=== PATIENT | female | born 1990 | race Caucasian/White ===

== ENCOUNTER 2018-08-29 23:27 | Emergency (ER) | payer MEDICAID ==
[~2018-08-29] VITALS: Ht 177.8 cm; Wt 47.7 kg
[2018-08-30] MEDS ORDERED: methylPREDNISolone SOD SUCC 125 MG/2 ML ONE (00:12)
[2018-08-30] MEDS ORDERED: ALBUTEROL SULFATE 2.5 MG/3 ML ONE (00:14)
[2018-08-30] MEDS ORDERED: SODIUM CHLORIDE FLUSH 10ML SYR IVF ONE (00:30)
[2018-08-30] MEDS ORDERED: SODIUM CHLORIDE 0.9% 1,000ML IVBOLUS ONE (00:30)
[2018-08-30] MEDS ORDERED: ALBUTEROL/IPRATROPIUM 2.5MG/0.5MG, 3 ML NPPB ONE (00:30)
[2018-08-30] MEDS ORDERED: methylPREDNISolone SOD SUCC 125 MG/2 ML IVP ONE (00:30)
[2018-08-30] MEDS ORDERED: ALBUTEROL SULFATE 2.5 MG/3 ML NPPB ONE ×2 (00:30→01:30)
[2018-08-30 00:34] LABS: BASOPHILS # (AUTO) 0.04 x10^3/uL (0-0.1); BASOPHILS % (AUTO) 0 % (0-1); EOSINOPHILS # (AUTO) 0.12 x10^3/uL (0-0.4); EOSINOPHILS % (AUTO) 1 % (1-7); LYMPHOCYTES # (AUTO) 1.53 x10^3/uL (1-3.4); LYMPHOCYTES % (AUTO) 13 % (22-44); MD NO; MEAN CORPUSCULAR HEMOGLOBIN 30.6 pg (27.0-34.8); MEAN CORPUSCULAR HGB CONC 33.5 g/dL (32.4-35.8); MEAN CORPUSCULAR VOLUME 91.3 fL (80-100); MONOCYTES % (AUTO) 7 % (2-9); NEUTROPHILS # (AUTO) 9.61 x10^3/uL (1.8-6.8); NEUTROPHILS % (AUTO) 79 % (42-75); PLATELET COUNT 263 x10^3/uL (130-400); RED BLOOD COUNT 5.37 x10^6/uL (3.82-5.3); RED CELL DISTRIBUTION WIDTH 12.3 % (9.6-15.2)
[2018-08-30 00:42] LABS: ALBUMIN 4.5 g/dL (3.4-5.0); ANION GAP 12 mmol/L (5-15); CALCIUM 9.2 mg/dL (8.5-10.1); CHLORIDE 105 mmol/L (98-107)
[2018-08-30 00:43] LABS: CREATININE 0.74 mg/dL (0.55-1.02)
[2018-08-30 02:47] VITALS: BP 109/71
[2018-08-30] MEDS ORDERED: ACETAMINOPHEN 500 MG TABLET PO ONE (03:00)
== END 2018-08-30 02:55 | disposition home or self-care (01) ==
LOC: ED 08-30 00:04
DX: J20.8 Acute bronchitis due to other specified organisms (principal)
CPT/HCPCS: 36415; 71045; 80048; 82040; 85025; 93005; 94640; 96374; 99285; J2930; J7030; J7613

== ENCOUNTER 2018-11-15 18:12 | Emergency (ER) | payer MEDICAID ==
[~2018-11-15] VITALS: Ht 177.8 cm; Wt 54.5 kg
[2018-11-15 18:22] VITALS: BP 118/65
--- NOTE | 2018-11-15 19:04 | NUR ---
ASSUMED CARE OF PT REPORT FROM SUSANNA
[2018-11-15] MEDS ORDERED: OXYcodone/APAP 5/325MG TABLET ONE (19:12)
[2018-11-15] MEDS ORDERED: LIDOCAINE-MPF 1%, 5ML ONE (19:12)
[2018-11-15] MEDS ORDERED: IBUPROFEN 600 MG TABLET ONE (19:12)
[2018-11-15] MEDS ORDERED: ONDANSETRON ODT 4 MG ONE (19:12)
[2018-11-15] MEDS ORDERED: CLINDAMYCIN 150 MG/ML, 6ML ONE (19:28)
[2018-11-15] MEDS ORDERED: CLINDAMYCIN 150 MG/ML, 6ML IM ONE (19:30)
[2018-11-15] MEDS ORDERED: OXYcodone/APAP 5/325MG TABLET PO ONE (19:30)
[2018-11-15] MEDS ORDERED: ONDANSETRON ODT 4 MG PO ONE (19:30)
[2018-11-15] MEDS ORDERED: LIDOCAINE 1%-EPI 1:100K, 20ML SQ ONE (19:30)
[2018-11-15] MEDS ORDERED: IBUPROFEN 200 MG TABLET PO ONE (19:30)
== END 2018-11-15 20:25 | disposition home or self-care (01) ==
LOC: ED 19:11
DX: K04.6 Periapical abscess with sinus (principal); R51 Headache; K02.9 Dental caries, unspecified; Z87.891 Personal history of nicotine dependence
CPT/HCPCS: 41800; 87070; 87205; 96372; 99284; Q0162; S0077; 99283; 99406

== ENCOUNTER 2019-05-17 01:30 | Emergency (ER) | payer MEDICAID ==
[~2019-05-17] VITALS: Ht 177.8 cm; Wt 49.3 kg
--- NOTE | 2019-05-17 02:32 | NUR ---
PT. TO ROOM FROM LOBBY.
[2019-05-17 02:46] LABS: MICROSCOPIC NOT IND
[2019-05-17 02:49] LABS: CULTURE INDICATED? NO
[2019-05-17 02:56] LABS: AMPHETAMINE SCREEN, URINE Positive (Negative); BARBITURATE SCREEN, URINE Negative (Negative); BENZODIAZEPINE SCREEN, URINE Negative (Negative); CANNABINOID SCREEN, URINE Positive (Negative); COCAINE SCREEN, URINE Negative (Negative); METHADONE SCREEN, URINE Negative (Negative); OPIATE SCREEN, URINE Negative (Negative)
[2019-05-17 02:59] LABS: BASOPHILS # (AUTO) 0.03 x10^3/uL (0-0.1); BASOPHILS % (AUTO) 1 % (0-1); EOSINOPHILS # (AUTO) 0.14 x10^3/uL (0-0.4); EOSINOPHILS % (AUTO) 2 % (1-7); LYMPHOCYTES # (AUTO) 2.09 x10^3/uL (1-3.4); LYMPHOCYTES % (AUTO) 33 % (22-44); MD NO; MEAN CORPUSCULAR HEMOGLOBIN 30.2 pg (27.0-34.8); MEAN CORPUSCULAR HGB CONC 33.3 g/dL (32.4-35.8); MEAN CORPUSCULAR VOLUME 90.6 fL (80-100); MEAN PLATELET VOLUME 9.6 fL (7.4-10.4); MONOCYTES # (AUTO) 0.44 x10^3/uL (0.2-0.8); MONOCYTES % (AUTO) 7 % (2-9); NEUTROPHILS # (AUTO) 3.64 x10^3/uL (1.8-6.8); NEUTROPHILS % (AUTO) 58 % (42-75); PLATELET COUNT 247 x10^3/uL (130-400); RED BLOOD COUNT 5.04 x10^6/uL (3.82-5.3); RED CELL DISTRIBUTION WIDTH 12.1 % (9.6-15.2)
[2019-05-17 03:09] LABS: ALANINE AMINOTRANSFERASE 20 U/L (12-78); ALBUMIN 4.1 g/dL (3.4-5.0); ANION GAP 8 mmol/L (5-15); CALCIUM 8.8 mg/dL (8.5-10.1); CHLORIDE 105 mmol/L (98-107); CREATININE 0.67 mg/dL (0.55-1.02)
[2019-05-17 03:12] LABS: ALKALINE PHOSPHATASE 52 U/L (45-117); CREATINE KINASE, TOTAL 68 U/L (26-192); TOTAL PROTEIN 7.6 g/dL (6.4-8.2)
--- NOTE | 2019-05-17 03:22 | NUR ---
AWAITNG PROVIDER ORDERS.
--- NOTE | 2019-05-17 03:40 | NUR ---
DR. MCCLAIN IN TO DISCUSS ED FINDINGS WITH PT. PT. VERY RESTLESS AND MOVING AROUND ON GURSTACI NON-STOP. AWATING DISPO.
[2019-05-17 03:45] VITALS: BP 122/86
== END 2019-05-17 03:55 | disposition home or self-care (01) ==
LOC: ED 03:00
DX: R20.2 Paresthesia of skin (principal); F17.200 Nicotine dependence, unspecified, uncomplicated
CPT/HCPCS: 36415; 80053; 80307; 81003; 82550; 85025; 99283

== ENCOUNTER 2020-12-24 17:49 | Emergency (ER) | payer MEDICAID ==
[~2020-12-24] VITALS: Ht 175.3 cm; Wt 48.3 kg
[2020-12-24] MEDS ORDERED: OMNIPAQUE 350 MG/ML, 100ML BOTTLE ONE (18:30)
[2020-12-24] MEDS ORDERED: SODIUM CHLORIDE FLUSH 10ML SYR IVF ONE (18:30)
[2020-12-24] MEDS ORDERED: AMPICILLIN/SULBACTAM 3 GM in SODIUM CHLORIDE 0.9% 100 ML IV ONE (18:30)
[2020-12-24 18:40] LABS: BASOPHILS % (AUTO) 1 % (0-1); EOSINOPHILS % (AUTO) 6 % (1-7); LYMPHOCYTES % (AUTO) 33 % (22-44); MD NO; MEAN CORPUSCULAR HEMOGLOBIN 28.9 pg (27.0-34.8); MEAN PLATELET VOLUME 8.7 fL (7.4-10.4); MONOCYTES % (AUTO) 8 % (2-9); NEUTROPHILS % (AUTO) 51 % (42-75); PLATELET COUNT 304 x10^3/uL (130-400)
[2020-12-24 18:51] LABS: ALBUMIN 3.6 g/dL (3.4-5.0); ANION GAP 6 mmol/L (5-15); CALCIUM 9.2 mg/dL (8.5-10.1); CHLORIDE 104 mmol/L (98-107); CREATININE 0.75 mg/dL (0.55-1.02)
--- NOTE | 2020-12-24 18:53 | NUR ---
BEDSIDE REPORT FROM JAVIER CHUNINSPECTOR FIBROUS WALLBOARD OF CARE AT THIS TIME, PT RESTING ON GURNEY COMFORTABLY WITH NO NEEDS.
--- NOTE | 2020-12-24 19:25 | NUR ---
PT BACK FROM CT AT THIS TIME
[2020-12-24 20:43] VITALS: BP 104/64
--- NOTE | 2020-12-24 20:44 | NUR ---
Patient/Caregiver given discharge instructions and they have confirmed that they understand the instructions. Patient ambulatory with steady gait.
== END 2020-12-24 21:00 | disposition home or self-care (01) ==
LOC: ED 20:25
DX: K02.9 Dental caries, unspecified (principal); L03.211 Cellulitis of face; F17.200 Nicotine dependence, unspecified, uncomplicated
CPT/HCPCS: 36415; 70487; 80048; 82040; 84703; 85025; 96365; 96366; 99285; J0295; Q9967